=== PATIENT | male | born 1975 | race Two or more races ===

== ENCOUNTER 2020-03-09 12:10 | Emergency (ER) | payer MEDICAID ==
[~2020-03-09] VITALS: Ht 175.3 cm; Wt 77.3 kg
[2020-03-09 12:12] VITALS: BP 130/70
== END 2020-03-09 16:16 | disposition left against medical advice (07) ==
LOC: EMS 12:20
DX: R05 Cough (principal); Z53.21 Procedure and treatment not carried out due to patient leaving prior to being seen by health care provider